=== PATIENT | male | born 1945 | race Caucasian/White ===

== ENCOUNTER 2016-09-17 13:07 | Inpatient (IN) ==
[2016-09-17] MEDS ORDERED: *HR* OxyCODONE/APAP 5/325 TABLET PO PRN (14:16)
[2016-09-18] MEDS: *HR* OxyCODONE/APAP 5/325 TABLET PO PRN (05:49)
[2016-09-18 06:17] LABS: Basophils % 0.7 %; Eosinophils # 0.5 K/mcL (0.0-0.6); Hematocrit 32.9 % (37.5-50.1); Hemoglobin 11.4 g/dL (12.9-16.9); Lymphocytes # 0.9 K/mcL (0.6-4.6); Lymphocytes % 21.5 %; Mean Corpuscular HGB Conc 34.7 g/dL (31.6-35.5); Mean Corpuscular Hemoglobin 28.9 pg (28.0-33.3); Mean Corpuscular Volume 83.5 fL (83.0-100.0); Mean Platelet Volume 9.9 fL (9.4-12.4); Monocytes # 0.6 K/mcL (0.0-1.3); Monocytes % 15.4 %; Neutrophils # 2.1 K/mcL (1.6-8.9); Platelet Count 182 K/mcL (140-400); Red Blood Count 3.94 M/mcL (4.19-5.50); Red Cell Distribution Width 12.9 % (11.5-14.5); Segmented Neutrophils % 50.4 %
[2016-09-18 06:19] LABS: INR 1.2; Prothrombin Time 12.8 Seconds (9.4-12.1)
[2016-09-18 06:28] LABS: BUN/Creatinine Ratio 27 (6-26); Blood Urea Nitrogen 24 mg/dL (8-26); Calcium 9.3 mg/dL (8.6-10.8); Carbon Dioxide 23 mEq/L (19-29); Chloride 111 mEq/L (98-109); Glucose 99 mg/dL (70-99); Osmolality,Calculated 298 (280-300); Potassium 4.6 mEq/L (3.5-4.5); Sodium 142 mEq/L (136-145); eGFR For African Americans > 60 (> 60); eGFR For Non-African Americans > 60 (> 60)
[2016-09-18] MEDS: Iron Polysaccharide Complex 150 MG CAPSULE PO SCH (09:18)
[2016-09-18] MEDS: Multivit/Ca/Min/Fe/FA 1 TAB TABLET PO SCH (09:18)
[2016-09-18] MEDS: Celecoxib 200 MG CAPSULE PO SCH (09:18)
--- NOTE | 2016-09-18 13:58 | Internal Med History&Physical ---
Date of Encounter: 09/18/16 Time of Encounter: 13:56 Assessment and Plan (1) History of total left knee replacement Current visit: Yes Status: Acute Patient had a left total knee replacements doing well despite in all modalities of therapy Internal Medicine - H&P: HPI Chief complaint: Patient dies here for left total knee replacement due to osteoarthritis. Admitted From: Hospital to Hospital Transfer Plans for Post Hospital Care: Home History of present illness: Mr. Reyes is a 71 year old male Patient's had trouble that did not respond to conservative therapy elected to have a left total knee replacement Past Med Surg Social Fam HX - Past Medical History Medical history: cancer, CHF, dementia, hypertension, other Psychiatric history: no psych history - Past Surgical History Surgical History: coronary bypass (CABG), pacemaker/AICD, prostatectomy - Social History Smoking Status: Never smoker Smokeless Tobacco Status: No Alcohol use: occasionally Drug use: none - Family History Father History Unknown: Yes Adopted: No Family Member Ethnicity: Non- Living Status: Age at : 56 Hx Family Cardiac Disorders: Yes Hx Family Respiratory Disorders: No Hx Family Cancer: No Hx Family GI Disorders: No Hx Family Endocrine Disorder: No Hx Family Neuromuscular Disorders: No Hx Family Neurologic Disorders: No Hx Family HEENT Disorders: No Hx Family Autoimmune Disorders: No Internal Medicine - H&P: Meds Aspirin/Calcium Carbonate/Mag [Aspirin Buffered 325 mg Tab] 325 mg PO DAILY [History] Atorvastatin [Lipitor] 10 mg PO HS 12/09/15 [History] Calcium 500 + Vit D Caplet 1 tab PO DAILY 12/09/15 [History] Carvedilol 3.125 mg PO BID 12/09/15 [History] Centrum Silver Tablet 1 tab PO DAILY 12/09/15 [History] Leuprolide Acetate [Eligard] 22.5 mg SQ [id number] 12/09/15 [History] Allergies Penicillins Allergy (Severe, Verified 12/09/15 14:12) Hives All Systems PM: A 10-system review of systems was performed and is negative for pertinent findings except as documented above in the HPI. - Constitutional Vitals: Temp Pulse Resp BP Pulse Ox 97.1 F L 60 15 168/72 95 09/18/16 11:00 09/18/16 11:00 09/18/16 11:00 09/18/16 11:00 09/18/16 11:00 - Head Head exam: Present: atraumatic, normal inspection, normocephalic - Respiratory Respiratory exam: Present: CTAB. Absent: accessory muscle use, rales, rhonchi, wheezes - Cardiovascular Cardiovascular exam: Present: RRR, +S1, +S2. Absent: diastolic murmur, gallop, rubs, systolic murmur - GI/Abdominal GI/Abdominal exam: Present: normal bowel sounds, soft, no peritoneal signs. Absent: distended, tenderness Internal Med - H&P Results - Labs CBC & Chem 7: 09/18/16 05:40 09/18/16 05:40 Labs: Short CBC 09/18/16 Range/Units 05:40 WBC 4.1 L (4.3-11.1) K/mcL Hgb 11.4 L (12.9-16.9) g/dL Hct 32.9 L (37.5-50.1) % Plt Count 182 (140-400) K/mcL Neutrophils # 2.1 (1.6-8.9) K/mcL BMP 09/18/16 05:40 Sodium 142 Potassium 4.6 H Chloride 111 H Carbon Dioxide 23 BUN 24 Creatinine 0.90 Glucose 99 Calcium 9.3 Lab looks pretty good
[2016-09-18] MEDS: *HR* Rivaroxaban 10 MG TABLET PO SCH (16:46)
[2016-09-19] MEDS: *HR* OxyCODONE/APAP 5/325 TABLET PO PRN ×3 (05:31→21:13)
[2016-09-19] MEDS: Iron Polysaccharide Complex 150 MG CAPSULE PO SCH (09:55)
[2016-09-19] MEDS: Multivit/Ca/Min/Fe/FA 1 TAB TABLET PO SCH (09:56)
[2016-09-19] MEDS: Celecoxib 200 MG CAPSULE PO SCH (09:56)
--- NOTE | 2016-09-19 13:08 | Internal Med Progress Note ---
Date of Encounter: 09/19/16 Time of Encounter: 13:07 - Assessment and plan (1) History of total left knee replacement Current Visit: Yes Status: Acute Assessment and plan: Patient is working with PT and OT doing well - Time Spent With Patient less than 15 minutes - Subjective Interval history: Mr. Salazar is doing well took a shower feeling good no complaints right now - Constitutional Vitals: Temp Pulse Resp BP Pulse Ox 98.2 F 80 18 128/79 96 09/19/16 07:18 09/19/16 07:18 09/19/16 07:18 09/19/16 07:18 09/19/16 07:18 - Head Head exam: Present: atraumatic, normal inspection, normocephalic - Neck Neck exam general surgery: Present: supple, trachea midline. Absent: lymphadenopathy - Respiratory Respiratory exam: Present: CTAB. Absent: accessory muscle use, rales, rhonchi, wheezes - Cardiovascular Cardiovascular exam: Present: RRR, +S1, +S2. Absent: diastolic murmur, gallop, rubs, systolic murmur Internal Medicine: Result - Labs CBC & Chem 7: 09/18/16 05:40 09/18/16 05:40 Labs: Lab is stable - ABG Interpretation ABG results: PT/INR, D-dimer PT 12.8 Seconds (9.4-12.1) H 09/18/16 05:40 Consult Discharge Plan - Plan Referrals: Tal Oro MD [Primary Care Provider] -
[2016-09-19] MEDS: *HR* Rivaroxaban 10 MG TABLET PO SCH (16:30)
[2016-09-20] MEDS: *HR* OxyCODONE/APAP 5/325 TABLET PO PRN ×2 (06:00→19:41)
[2016-09-20] MEDS: Iron Polysaccharide Complex 150 MG CAPSULE PO SCH (09:18)
[2016-09-20] MEDS: Celecoxib 200 MG CAPSULE PO SCH (09:19)
[2016-09-20] MEDS: Multivit/Ca/Min/Fe/FA 1 TAB TABLET PO SCH (09:19)
--- NOTE | 2016-09-20 11:36 | Internal Med Progress Note ---
Date of Encounter: 09/20/16 Time of Encounter: 11:34 - Assessment and plan (1) History of total left knee replacement Current Visit: Yes Status: Acute Assessment and plan: All his knee looks good the dressings clean and dry and minimal erythema and swelling - Time Spent With Patient less than 15 minutes - Subjective Interval history: Mr. Salazar is doing well took a shower feeling good no complaints right now - Constitutional Vitals: Temp Pulse Resp BP Pulse Ox 97.0 F L 74 16 131/83 96 09/20/16 06:44 09/20/16 06:44 09/20/16 06:44 09/20/16 06:44 09/20/16 06:44 - Head Head exam: Present: atraumatic, normal inspection, normocephalic - Neck Neck exam general surgery: Present: supple, trachea midline. Absent: lymphadenopathy - Respiratory Respiratory exam: Present: CTAB. Absent: accessory muscle use, rales, rhonchi, wheezes - Cardiovascular Cardiovascular exam: Present: RRR, +S1, +S2. Absent: diastolic murmur, gallop, rubs, systolic murmur - GI/Abdominal GI/Abdominal exam: Present: normal bowel sounds, soft, no peritoneal signs. Absent: distended, tenderness Internal Medicine: Result - Labs CBC & Chem 7: 09/18/16 05:40 09/18/16 05:40 Labs: Lab is okay - ABG Interpretation ABG results: PT/INR, D-dimer PT 12.8 Seconds (9.4-12.1) H 09/18/16 05:40 Consult Discharge Plan - Plan Referrals: Emerson Haines MD [Non-Partnered Physician] - 10/02/16 2:15 am (followup after Left TKR) Tal Oro MD [Primary Care Provider] -
--- NOTE | 2016-09-20 12:20 | Physical Med Progress Note ---
Date of Encounter: 09/20/16 Time of Encounter: 12:19 Physical Medicine-PN: Subj Interval history: PMR PCC note Patient is s/p left TKA. Patient is mod I for gait, ADLs and transfers. No medical issues. Pain well controlled. Patient is ambulating with a cane. Plan for discharge to home with outpatient PT. - Constitutional Vitals: Vital Signs Temp Pulse Resp BP Pulse Ox 09/20/16 06:44 97.0 F L 74 16 131/83 96 09/19/16 19:43 98.1 F 69 16 109/61 95 Intake and Output 09/19/16 09/20/16 09/20/16 23:59 07:59 15:59 Intake Total 500 / 500 500 / 500 480 / 480 Balance 500 / 500 500 / 500 480 / 480 Intake: Oral 500 / 500 500 / 500 480 / 480 Other: Meal Breakfast Percent of Meal Consumed 100% # Voids 1 Physical Medicine-PN: Obj Data - Labs CBC & Chem 7: 09/18/16 05:40 09/18/16 05:40 - ABG Interpretation ABG results: PT/INR, D-dimer PT 12.8 Seconds (9.4-12.1) H 09/18/16 05:40 Consult Discharge Plan - Plan Referrals: Emerson Haines MD [Non-Partnered Physician] - 10/02/16 2:15 am (followup after Left TKR) Tal Oro MD [Primary Care Provider] -
--- NOTE | 2016-09-20 14:45 | Discharge Summary ---
Date of Encounter: 09/20/16 Time of Encounter: 14:43 - Discharge Diagnosis (1) History of total left knee replacement Priority: Primary Status: Acute Comments: CPT OT notes the patient has done exceedingly well - Discharge Medications Home Medications: Aspirin/Calcium Carbonate/Mag [Aspirin Buffered 325 mg Tab] 325 mg PO DAILY [History] Atorvastatin [Lipitor] 10 mg PO HS 12/09/15 [History] Calcium 500 + Vit D Caplet 1 tab PO DAILY 12/09/15 [History] Carvedilol 3.125 mg PO BID 12/09/15 [History] Centrum Silver Tablet 1 tab PO DAILY 12/09/15 [History] Leuprolide Acetate [Eligard] 22.5 mg SQ [id number] 12/09/15 [History] Allergies/Adverse Reactions: Allergies Penicillins Allergy (Severe, Verified 12/09/15 14:12) Hives Date of admission: 09/17/16 13:07 Primary care physician: Tal Oro MD Consults: 09/17/16 14:18 Consult to Occupational Therapy [CONS] Routine Comment: Evaluate, develop and implement POC Consult to Physical Therapy [CONS] Routine Comment: Evaluate, develop and implement POC Consult to Recreational Therapy [CONS] Routine Comment: Evaluate, develop and implement POC Consult to Helicopter Pilot [CONS] Routine Reason for SW Consult: for discharge planning Discharging clinician: Jimbo Candelaria Anticipated date of discharge: 09/21/16 - Patient Status Disposition: Home, Self-Care Condition: Good Functional capacity at discharge: independent ambulation Overall status at discharge: patient is progressing back to baseline - Discharge Instructions Follow Up With: Emerson Haines MD [Non-Partnered Physician] - 10/02/16 2:15 am (followup after Left TKR) Tal Oro MD [Primary Care Provider] - - Diet and Activity Activity: as per physical therapy Interval History: She was transferred here after undergoing total knee replacement for osteoarthritis. Hospital course: Mr. Reyes is a 71 year old male CPT no T notes but the patient has done exceedingly well will be discharged home tomorrow - Time Spent with Patient Total time spent providing and/or coordinating discharge services: Less than 30 minutes - Constitutional Vitals: Temp Pulse Resp BP Pulse Ox 97.0 F L 74 16 131/83 96 09/20/16 06:44 09/20/16 06:44 09/20/16 06:44 09/20/16 06:44 09/20/16 06:44 - Head Head exam: Present: atraumatic, normal inspection, normocephalic - Respiratory Respiratory exam: Present: CTAB. Absent: accessory muscle use, rales, rhonchi, wheezes - Cardiovascular Cardiovascular exam: Present: RRR, +S1, +S2. Absent: diastolic murmur, gallop, rubs, systolic murmur
[2016-09-20] MEDS: *HR* Rivaroxaban 10 MG TABLET PO SCH (17:18)
[2016-09-21 07:44] VITALS: BP 149/91
[2016-09-21] MEDS: Celecoxib 200 MG CAPSULE PO SCH (08:58)
[2016-09-21] MEDS: Iron Polysaccharide Complex 150 MG CAPSULE PO SCH (08:59)
[2016-09-21] MEDS: Multivit/Ca/Min/Fe/FA 1 TAB TABLET PO SCH (09:05)
[2016-09-28] MEDS ORDERED: Aspirin 81 MG TAB.CHEW PO SCH (09:00)
== END 2016-09-21 11:05 | disposition home or self-care (01) | DRG 561 ==
LOC: INPGRE 13:07
PROVIDERS: ADMIT Internal Medicine; ATTEND Internal Medicine

== ENCOUNTER 2016-11-19 15:11 | Inpatient (IN) ==
[2016-11-19] MEDS: *HR* HYDROcodone/Acet 5/325 mg TABLET PO PRN (18:32)
[2016-11-19] MEDS: *HR* Rivaroxaban 10 MG TABLET PO SCH (18:32)
[2016-11-20] MEDS: *HR* HYDROcodone/Acet 5/325 mg TABLET PO PRN ×2 (05:48→18:03)
[2016-11-20 05:51] LABS: INR 1.3; Prothrombin Time 14.3 Seconds (9.4-12.1)
[2016-11-20 05:52] LABS: Basophils % 0.8 %; Eosinophils # 0.4 K/mcL (0.0-0.6); Eosinophils % 8.2 %; Hemoglobin 11.7 g/dL (12.9-16.9); Immature Granulocytes % 0.8 % (0-4); Lymphocytes # 1.1 K/mcL (0.6-4.6); Mean Corpuscular HGB Conc 34.4 g/dL (31.6-35.5); Mean Corpuscular Hemoglobin 28.7 pg (28.0-33.3); Mean Corpuscular Volume 83.3 fL (83.0-100.0); Mean Platelet Volume 9.9 fL (9.4-12.4); Monocytes # 0.6 K/mcL (0.0-1.3); Neutrophils # 2.6 K/mcL (1.6-8.9); Platelet Count 196 K/mcL (140-400); Red Blood Count 4.08 M/mcL (4.19-5.50); Red Cell Distribution Width 13.4 % (11.5-14.5); Segmented Neutrophils % 55.2 %
[2016-11-20 05:54] LABS: Activated Partial Thrombo Time 28.9 Seconds (26.0-36.0)
[2016-11-20 05:59] LABS: BUN/Creatinine Ratio 24 (6-26); Blood Urea Nitrogen 22 mg/dL (8-26); Calcium 9.5 mg/dL (8.6-10.8); Carbon Dioxide 21 mEq/L (19-29); Chloride 110 mEq/L (98-109); Glucose 98 mg/dL (70-99); Osmolality,Calculated 295 (280-300); Potassium 4.4 mEq/L (3.5-4.5); Sodium 141 mEq/L (136-145); eGFR For African Americans > 60 (> 60); eGFR For Non-African Americans > 60 (> 60)
[2016-11-20] MEDS: Iron Polysaccharide Complex 150 MG CAPSULE PO SCH (09:09)
[2016-11-20] MEDS: Celecoxib 200 MG CAPSULE PO SCH (09:09)
[2016-11-20] MEDS: VIT D PO SCH (09:12)
[2016-11-20] MEDS: CALCIUM PO SCH (09:12)
--- NOTE | 2016-11-20 11:49 | Internal Med History&Physical ---
Date of Encounter: 11/20/16 Time of Encounter: 11:47 Assessment and Plan (1) History of total right knee replacement Current visit: Yes Status: Acute Patient is here now for rehabilitation status post right total knee replacement (2) History of total left knee replacement Current visit: No Status: Acute Previously done left knee and it is doing very well Internal Medicine - H&P: HPI Chief complaint: Patient had right total knee done Admitted From: Hospital to Hospital Transfer Plans for Post Hospital Care: Home History of present illness: Mr. Reyes is a 71 year old male Patient had osteoarthritis and previously his left knee done currently he is here for rehabilitation status post right total knee Past Med Surg Social Fam HX - Past Medical History Medical history: arthritis, cancer, cardiomyopathy, CHF, coronary artery disease , dementia, hypertension, other Psychiatric history: no psych history - Past Surgical History Surgical History: coronary bypass (CABG), pacemaker/AICD, prostatectomy - Social History Smoking Status: Never smoker Smokeless Tobacco Status: No Alcohol use: occasionally Drug use: none - Family History Mother History Unknown: Yes Father History Unknown: Yes Adopted: No Family Member Ethnicity: Non- Living Status: Hx Family Cardiac Disorders: Yes Hx Family Respiratory Disorders: No Hx Family Cancer: No Hx Family GI Disorders: No Hx Family Endocrine Disorder: No Hx Family Neuromuscular Disorders: No Hx Family Neurologic Disorders: No Hx Family HEENT Disorders: No Hx Family Autoimmune Disorders: No Internal Medicine - H&P: Meds Atorvastatin [Lipitor] 10 mg PO HS 12/09/15 [History] Calcium 500 + Vit D Caplet 1 tab PO DAILY 12/09/15 [History] Carvedilol 3.125 mg PO BID 12/09/15 [History] Allergies Penicillins Allergy (Severe, Verified 12/09/15 14:12) Hives All Systems PM: A 10-system review of systems was performed and is negative for pertinent findings except as documented above in the HPI. - Constitutional Vitals: Temp Pulse Resp BP Pulse Ox 98.3 F 62 18 110/62 99 11/20/16 11:47 11/20/16 11:47 11/20/16 11:47 11/20/16 11:47 11/20/16 11:47 - Head Head exam: Present: atraumatic, normal inspection, normocephalic - Neck Neck exam general surgery: Present: supple, trachea midline. Absent: lymphadenopathy - Respiratory Respiratory exam: Present: CTAB. Absent: accessory muscle use, rales, rhonchi, wheezes - Cardiovascular Cardiovascular exam: Present: RRR, +S1, +S2. Absent: diastolic murmur, gallop, rubs, systolic murmur Internal Med - H&P Results - Labs CBC & Chem 7: 11/20/16 05:05 11/20/16 05:05 Labs: Short CBC 11/20/16 Range/Units 05:05 WBC 4.8 (4.3-11.1) K/mcL Hgb 11.7 L (12.9-16.9) g/dL Hct 34.0 L (37.5-50.1) % Plt Count 196 (140-400) K/mcL Neutrophils # 2.6 (1.6-8.9) K/mcL BMP 11/20/16 05:05 Sodium 141 Potassium 4.4 Chloride 110 H Carbon Dioxide 21 BUN 22 Creatinine 0.92 Glucose 98 Calcium 9.5 Lab is stableza
[2016-11-20] MEDS: *HR* Rivaroxaban 10 MG TABLET PO SCH (18:02)
[2016-11-21] MEDS: *HR* HYDROcodone/Acet 5/325 mg TABLET PO PRN ×3 (05:00→20:30)
[2016-11-21] MEDS: Celecoxib 200 MG CAPSULE PO SCH (08:49)
[2016-11-21] MEDS: Iron Polysaccharide Complex 150 MG CAPSULE PO SCH (08:49)
[2016-11-21] MEDS: VIT D PO SCH (08:51)
[2016-11-21] MEDS: CALCIUM PO SCH (08:51)
--- NOTE | 2016-11-21 14:10 | Internal Med Progress Note ---
Date of Encounter: 11/21/16 Time of Encounter: 14:09 - Assessment and plan (1) History of total right knee replacement Current Visit: Yes Status: Acute Assessment and plan: Patient's had OA for some time in the problems in his right total knee replacement done and sent here for repeat (2) History of total left knee replacement Current Visit: No Status: Acute Assessment and plan: Review sleeved on did well - Time Spent With Patient less than 15 minutes - Subjective Interval history: Patient is doing well responded to therapy and he is seeing our OT about the lymphedema - Constitutional Vitals: Temp Pulse Resp BP Pulse Ox 97.4 F L 67 16 135/74 95 11/21/16 07:17 11/21/16 07:17 11/21/16 07:17 11/21/16 07:17 11/21/16 07:17 - Head Head exam: Present: atraumatic, normal inspection, normocephalic - Neck Neck exam general surgery: Present: supple, trachea midline. Absent: lymphadenopathy - Respiratory Respiratory exam: Present: CTAB. Absent: accessory muscle use, rales, rhonchi, wheezes - Cardiovascular Cardiovascular exam: Present: RRR, +S1, +S2. Absent: diastolic murmur, gallop, rubs, systolic murmur Internal Medicine: Result - Labs CBC & Chem 7: 11/20/16 05:05 11/20/16 05:05 - ABG Interpretation ABG results: PT/INR, D-dimer PT 14.3 Seconds (9.4-12.1) H 11/20/16 05:05 Consult Discharge Plan - Plan Referrals: Tal Oro MD [Primary Care Provider] -
[2016-11-21] MEDS: *HR* Rivaroxaban 10 MG TABLET PO SCH (17:44)
[2016-11-22 07:13] VITALS: BP 138/68
[2016-11-22] MEDS: *HR* HYDROcodone/Acet 5/325 mg TABLET PO PRN (08:14)
[2016-11-22] MEDS: Iron Polysaccharide Complex 150 MG CAPSULE PO SCH (08:14)
[2016-11-22] MEDS: VIT D PO SCH (08:15)
[2016-11-22] MEDS: CALCIUM PO SCH (08:15)
[2016-11-22] MEDS: Celecoxib 200 MG CAPSULE PO SCH (08:15)
--- NOTE | 2016-11-24 13:05 | Discharge Summary ---
Date of Encounter: 11/22/16 Time of Encounter: 15:00 - Discharge Diagnosis (1) History of total right knee replacement Priority: Primary Status: Acute Comments: Patient had very productive rehabilitation. (2) History of total left knee replacement Priority: Secondary Status: Acute Comments: Patient still actually healing from his left but it is going well - Discharge Medications Home Medications: Atorvastatin [Lipitor] 10 mg PO HS 12/09/15 [History] Calcium 500 + Vit D Caplet 1 tab PO DAILY 12/09/15 [History] Carvedilol 3.125 mg PO BID 12/09/15 [History] Allergies/Adverse Reactions: Allergies Penicillins Allergy (Severe, Verified 12/09/15 14:12) Hives Date of admission: 11/19/16 15:11 Primary care physician: Tal Oro MD Consults: 11/19/16 15:30 Consult to Occupational Therapy [CONS] Routine Comment: Evaluate, develop and implement POC Consult to Physical Medicine/Rehab [CONS] Routine Reason for Consult: rehab admit Call Completed: Yes Consult to Physical Therapy [CONS] Routine Comment: Evaluate, develop and implement POC Consult to Recreational Therapy [CONS] Routine Comment: Evaluate, develop and implement POC Consult to Facility Maintenance Worker [CONS] Routine Reason for SW Consult: d/c planning Discharging clinician: Jimbo Candelaria Anticipated date of discharge: 11/22/16 - Patient Status Disposition: Home, Self-Care Functional capacity at discharge: uses cane/walker Overall status at discharge: patient is progressing back to baseline - Discharge Instructions Follow Up With: Emerson Haines MD [Non-Partnered Physician] - 11/29/16 1:00 pm Tal Oro MD [Primary Care Provider] - - Diet and Activity Activity: ambulate only with your walker Diet: advance to your usual diet Interval History: Patient was sent here postop for total knee replacement for osteoarthritis. Is done with Hospital course: Mr. Reyes is a 71 year old male Suha's up independent using his walker and is able to do household distances. Be discharged home the company of his family today - Time Spent with Patient Total time spent providing and/or coordinating discharge services: Less than 30 minutes - Constitutional Vitals: Temp Pulse Resp BP Pulse Ox 98.7 F 61 18 138/68 99 11/22/16 07:12 11/22/16 07:12 11/22/16 07:12 11/22/16 07:12 11/22/16 07:12 - Head Head exam: Present: atraumatic, normal inspection, normocephalic - Neck Neck exam general surgery: Present: supple, trachea midline. Absent: lymphadenopathy - Respiratory Respiratory exam: Present: CTAB. Absent: accessory muscle use, rales, rhonchi, wheezes - Cardiovascular Cardiovascular exam: Present: RRR, +S1, +S2. Absent: diastolic murmur, gallop, rubs, systolic murmur
== END 2016-11-22 15:00 | disposition home or self-care (01) | DRG 560 ==
LOC: INPGRE 15:11
PROVIDERS: ADMIT Internal Medicine; ATTEND Internal Medicine